=== PATIENT | male | born 1945 | race Caucasian/White ===

== ENCOUNTER 2016-11-10 17:55 | Emergency (ER) | payer MEDICARE, OTHER ==
[2016-11-10] MEDS ORDERED: Sodium Chloride 0.9% 10 ML Syringe FLUSH PRN (18:36)
--- NOTE | 2016-11-10 18:36 | EDM.PDOC ---
<Zeb Winchester - Last Filed: 11/10/16 18:46> ED HPI GENERAL MEDICAL PROBLEM - General Chief Complaint: Respiratory Problem Stated Complaint: SOB Time Seen by Provider: 11/10/16 18:10 Source of Information: Reports: Patient History Limitations: Reports: No Limitations - History of Present Illness INITIAL COMMENTS - FREE TEXT/NARRATIVE: The patient is a 71-year-old male with a history of atrial fibrillation, pacemaker, diabetes, hypertension, congestive heart failure, who comes in with increasing shortness of breath and lower extremity swelling. He states that he' s had a cough for about a month. He hasn't seen a provider for that. He comes in today because for the past few days become increasingly short of breath. He continues to have a productive cough. Has also had worsening lower extremity swelling. No known fever. He does feel generally poor. Has tried nebulizer treatments at home with no relief. He also took 40 mg of Lasix this morning instead of his usual 20 mg. No chest pain. No abdominal pain, vomiting, or urinary symptoms. Has been compliant with his medications. - Related Data Allergies Allergy/AdvReac Type Severity Reaction Status Date / Time adhesive Allergy unk Verified 11/10/16 18:06 codeine Allergy Rash Verified 11/10/16 18:06 lisinopril Allergy unk Verified 11/10/16 18:06 oxycodone Allergy unk Verified 11/10/16 18:06 vancomycin Allergy Itching Verified 11/10/16 18:06 Home Meds: Home Meds Carboxymethyl/Gly/Poly80/Pf [Refresh Optive Advanced Drops] 1 drop EYEBOTH BEDTIME 04/01/14 [History] Carvedilol [Coreg] 6.25 mg PO QAM 04/01/14 [History] Cinnamon Bark [Cinnamon] 1,000 mg PO DAILY 04/01/14 [History] Dutasteride [Avodart] 0.5 mg PO DAILY 04/01/14 [History] Furosemide [Lasix] 10 mg PO DAILY 04/01/14 [History] Ibuprofen [Advil] 400 mg PO DAILY PRN 04/01/14 [History] Multivitamin [Multivitamins] 1 tab PO DAILY 04/01/14 [History] Potassium Chloride [Klor-Con M20] 20 meq PO DAILY 12/22/14 [History] SitaGLIPtin [Januvia] 50 mg PO DAILY 04/01/14 [History] Warfarin [Coumadin] 5 mg PO ASDIRECTED 04/01/14 [History] guaiFENesin [Mucinex] 600 mg PO DAILY PRN 04/01/14 [History] metFORMIN [Glucophage] 1,000 mg PO BEDTIME 04/01/14 [History] B&C/FA/Zinc/Copper Oxide/Vit E [Stress B-Complex Tablet] 1 tab PO DAILY [History] Warfarin [Coumadin] 7.5 mg PO FR 07/24/14 [History] Albuterol [Proventil Neb Soln] 2.5 mg NEB Q4H PRN 09/06/14 [History] Aspirin 1 tab PO DAILY 04/28/16 [History] Carvedilol [Coreg] 12.5 mg PO BEDTIME 04/28/16 [History] Lactobacillus Combination No.4 [Probiotic] 1 tab PO DAILY 04/28/16 [History] Ascorbic Acid [Vitamin C] 1 tab PO DAILY 04/29/16 [History] Budesonide/Formoterol [Symbicort 160-4.5 MCG] 2 hr IH ASDIRECTED PRN 04/29/16 [ History] Cholecalciferol (Vitamin D3) [Vitamin D3] 1,000 units PO DAILY 04/29/16 [History ] Docusate Sodium 200 mg PO BEDTIME 04/29/16 [History] Escitalopram [Lexapro] 10 mg PO DAILY 04/29/16 [History] Ferrous Sulfate 325 mg PO BID 04/29/16 [History] Gabapentin [Neurontin] 200 mg PO BEDTIME 04/29/16 [History] Ibuprofen 400 mg PO ASDIRECTED PRN 04/29/16 [History] Loratadine [Claritin] 1 tab PO ASDIRECTED PRN 04/29/16 [History] Losartan [Cozaar] 25 mg PO BEDTIME 04/29/16 [History] Methylcellulose [Citrucel] 500 mg PO BID 04/29/16 [History] Olopatadine [Patanol 0.1% Ophth Soln] 1 drop EYEBOTH DAILY 04/29/16 [History] Simvastatin [Zocor] 20 mg PO BEDTIME 04/29/16 [History] Sodium Chloride [Saline Nasal [place]] 1 spray NEELIMA DAILY 04/29/16 [History] traMADol HCl [Ultram] 50 - 100 mg PO Q6H PRN #20 tablet 04/29/16 [Rx] Past Medical History HEENT History: Reports: Impaired Vision Cardiovascular History: Reports: Afib, Heart Failure, High Cholesterol, Hypertension, Pacemaker Other Cardiovascular History: leaky valve, hx of tachycardia and a fib Respiratory History: Reports: Asthma, Sleep Apnea Other Respiratory History: allergic asthma Gastrointestinal History: Reports: Colon Polyp, Diverticulosis, GERD Neurological History: Reports: TIA Endocrine/Metabolic History: Reports: Diabetes, Type II - Past Surgical History HEENT Surgical History: Reports: Cataract Surgery, Tonsillectomy GI Surgical History: Reports: Other (See Below) Musculoskeletal Surgical History: Reports: Carpal Tunnel, Other (See Below) Social & Family History - Family History Family Medical History: Noncontributory - Tobacco Use Smoking Status *Q: Never Smoker Years of Tobacco use: 20 Packs/Tins Daily: 1 Used Tobacco, but Quit: Yes Month Tobacco Last Used: 1995 Second Hand Smoke Exposure: No - Caffeine Use Caffeine Use: Reports: None - Alcohol Use Days Per Week of Alcohol Use: 0 Number of Drinks Per Day: 0 Total Drinks Per Week: 0 - Recreational Drug Use Recreational Drug Use: No Drug Use in Last 12 Months: No - Living Situation & Occupation Living situation: Reports: , with Spouse Occupation: Retired ED ROS GENERAL - Review of Systems Review Of Systems: See Below Constitutional: Reports: Weakness, Fatigue. Denies: Fever HEENT: Reports: No Symptoms Respiratory: Reports: Shortness of Breath, Wheezing, Cough Cardiovascular: Denies: Chest Pain Endocrine: Reports: Fatigue GI/Abdominal: Denies: Abdominal Pain : Reports: No Symptoms Musculoskeletal: Reports: No Symptoms Skin: Reports: No Symptoms Neurological: Reports: No Symptoms Psychiatric: Reports: No Symptoms Hematologic/Lymphatic: Reports: No Symptoms ED EXAM, GENERAL - Physical Exam Exam: See Below Exam Limited By: No Limitations General Appearance: Alert, WD/WN, No Apparent Distress Eye Exam: Bilateral Eye: PERRL Ears: Normal External Exam Nose: Normal Inspection, Normal Mucosa, No Blood Throat/Mouth: Normal Inspection, Normal Voice, No Airway Compromise Head: Atraumatic, Normocephalic Neck: Normal Inspection, Supple, Non-Tender, Full Range of Motion Respiratory/Chest: Other (Scattered wheezes, a few crackles at the base, no distress) Cardiovascular: Normal Peripheral Pulses, Regular Rate, Rhythm, Other (1+ bilateral lower extremity pitting edema affects the feet up to the knees) GI/Abdominal: Soft, Non-Tender, No Distention. No: Rebound Back Exam: Normal Inspection Extremities: Normal Range of Motion, Non-Tender, Other (1+ pitting edema bilaterally up to the knees) Neurological: Alert, Oriented, Normal Cognition, No Motor/Sensory Deficits Psychiatric: Normal Affect, Normal Mood Skin Exam: Warm, Dry, Intact, Normal Color, No Rash Course - Vital Signs Last Recorded V/S: Last Vital Signs Temp 36.2 C 11/10/16 18:04 Pulse 101 H 11/10/16 18:04 Resp 17 11/10/16 18:04 BP Pulse Ox 96 11/10/16 18:59 - Orders/Labs/Meds Orders: Active Orders 24 hr Category Date Time Status EKG 12 Lead [EKG Documentation Completion] [RC] STAT Care 11/10/16 18:09 Active Peripheral IV Care [RC] . DIRECTED Care 11/10/16 18:36 Active RT Aerosol Therapy [RC] ASDIRECTED Care 11/10/16 18:51 Active Chest 1V Frontal [CR] Stat Exams 11/10/16 18:36 Taken Sodium Chloride 0.9% [Saline Flush] Med 11/10/16 18:36 Active 10 ml FLUSH ASDIRECTED PRN Peripheral IV Insertion Adult [OM.PC] Routine Oth 11/10/16 18:36 Ordered Medication Orders Sodium Chloride (Saline Flush) 10 ml FLUSH ASDIRECTED PRN PRN Reason: Keep Vein Open Last Admin: 11/10/16 19:10 Dose: 10 ml Labs: Laboratory Tests 11/10/16 11/10/16 11/10/16 Range/Units 19:10 19:10 19:10 WBC 12.44 H (4.23-9.07) K/mm3 RBC 4.08 L (4.63-6.08) M/mm3 Hgb 13.3 L (13.7-17.5) gm/L Hct 38.5 L (40.1-51.0) % MCV 94.4 H (79.0-92.2) fl MCH 32.6 H (25.7-32.2) pg MCHC 34.5 (32.2-35.5) g/dl RDW Std Deviation 47.2 H (35.1-43.9) fL Plt Count 216 (163-337) K/mm3 MPV 9.2 L (9.4-12.3) fl Neut % (Auto) 65.5 (34.0-67.9) % Lymph % (Auto) 14.3 L (21.8-53.1) % [place] % (Auto) 8.9 (5.3-12.2) % Eos % (Auto) 10.4 H (0.8-7.0) Baso % (Auto) 0.7 (0.1-1.2) % Neut # (Auto) 8.14 H (1.78-5.38) K/mm3 Lymph # (Auto) 1.78 (1.32-3.57) K/mm3 [place] # (Auto) 1.11 H (0.30-0.82) K/mm3 Eos # (Auto) 1.29 H (0.04-0.54) K/mm3 Baso # (Auto) 0.09 H (0.01-0.08) K/mm3 Sodium 138 (136-145) mEq/L Potassium 4.9 (3.5-5.1) mEq/L Chloride 104 (98-107) mEq/L Carbon Dioxide 24 (21-32) mEq/L Anion Gap 14.9 (5-15) BUN 21 H (7-18) mg/dL Creatinine 1.3 (0.7-1.3) mg/dL Est Cr Clr Drug Dosing 56.38 mL/min Estimated GFR (MDRD) 54 (>60) mL/min BUN/Creatinine Ratio 16.2 (14-18) Glucose 136 H (83-115) mg/dL Calcium 8.8 (8.5-10.1) mg/dL Total Bilirubin 0.8 (0.2-1.0) mg/dL AST 20 (15-37) U/L ALT 23 (16-63) U/L Alkaline Phosphatase 58 (46-116) U/L Troponin I 0.018 (0.00-0.056) ng/mL B-Natriuretic Peptide 480 H (0-100) pg/mL Total Protein 7.6 (6.4-8.2) g/dl Albumin 3.6 (3.4-5.0) g/dl Globulin 4.0 gm/dL Albumin/Globulin Ratio 0.9 L (1-2) Urine Color (Yellow) Urine Appearance (Clear) Urine pH (5.0-8.0) Ur Specific Campus (1.005-1.030) Urine Protein (Negative) Urine Glucose (UA) (Negative) Urine Ketones (Negative) Urine Occult Blood (Negative) Urine Nitrite (Negative) Urine Bilirubin (Negative) Urine Urobilinogen (0.2-1.0) Ur Leukocyte Esterase (Negative) Urine RBC (0-5) /hpf Urine WBC (0-5) /hpf Ur Epithelial Cells (0-5) /hpf Urine Bacteria (FEW) /hpf Urine Mucus (FEW) /hpf 11/10/16 Range/Units 21:03 WBC (4.23-9.07) K/mm3 RBC (4.63-6.08) M/mm3 Hgb (13.7-17.5) gm/L Hct (40.1-51.0) % MCV (79.0-92.2) fl MCH (25.7-32.2) pg MCHC (32.2-35.5) g/dl RDW Std Deviation (35.1-43.9) fL Plt Count (163-337) K/mm3 MPV (9.4-12.3) fl Neut % (Auto) (34.0-67.9) % Lymph % (Auto) (21.8-53.1) % [place] % (Auto) (5.3-12.2) % Eos % (Auto) (0.8-7.0) Baso % (Auto) (0.1-1.2) % Neut # (Auto) (1.78-5.38) K/mm3 Lymph # (Auto) (1.32-3.57) K/mm3 [place] # (Auto) (0.30-0.82) K/mm3 Eos # (Auto) (0.04-0.54) K/mm3 Baso # (Auto) (0.01-0.08) K/mm3 Sodium (136-145) mEq/L Potassium (3.5-5.1) mEq/L Chloride (98-107) mEq/L Carbon Dioxide (21-32) mEq/L Anion Gap (5-15) BUN (7-18) mg/dL Creatinine (0.7-1.3) mg/dL Est Cr Clr Drug Dosing mL/min Estimated GFR (MDRD) (>60) mL/min BUN/Creatinine Ratio (14-18) Glucose (83-115) mg/dL Calcium (8.5-10.1) mg/dL Total Bilirubin (0.2-1.0) mg/dL AST (15-37) U/L ALT (16-63) U/L Alkaline Phosphatase (46-116) U/L Troponin I (0.00-0.056) ng/mL B-Natriuretic Peptide (0-100) pg/mL Total Protein (6.4-8.2) g/dl Albumin (3.4-5.0) g/dl Globulin gm/dL Albumin/Globulin Ratio (1-2) Urine Color Yellow (Yellow) Urine Appearance Clear (Clear) Urine pH 5.5 (5.0-8.0) Ur Specific Campus 1.020 (1.005-1.030) Urine Protein 1+ H (Negative) Urine Glucose (UA) Negative (Negative) Urine Ketones Negative (Negative) Urine Occult Blood Negative (Negative) Urine Nitrite Negative (Negative) Urine Bilirubin Negative (Negative) Urine Urobilinogen 0.2 (0.2-1.0) Ur Leukocyte Esterase Negative (Negative) Urine RBC Not seen (0-5) /hpf Urine WBC 0-5 (0-5) /hpf Ur Epithelial Cells 0-5 (0-5) /hpf Urine Bacteria Not seen (FEW) /hpf Urine Mucus Not seen (FEW) /hpf Meds: Medications Generic Name Dose Route Start Last Admin Trade Name Freq PRN Reason Stop Dose Admin Sodium Chloride 10 ml 11/10/16 18:36 11/10/16 19:10 Saline Flush FLUSH 10 ml ASDIRECTED PRN Administration Keep Vein Open Discontinued Medications Generic Name Dose Route Start Last Admin Trade Name Freq PRN Reason Stop Dose Admin Albuterol/Ipratropium 3 ml 11/10/16 18:51 11/10/16 18:59 Duoneb 3.0-0.5 Mg/3 Ml NEB 11/10/16 18:52 3 ml ONETIME ONE Administration Furosemide 40 mg 11/10/16 20:48 11/10/16 20:58 Lasix IVPUSH 11/10/16 20:49 40 mg NOW ONE Administration - Re-Assessments/Exams Free Text/Narrative Re-Assessment/Exam: 11/10/16 18:50 EKG shows wide complex paced rhythm similar to prior. Chest x-ray and labs pending. Signed out to Dr. Jensen pending labs, reeval. Departure - Departure Disposition: Home, Self-Care 01 Clinical Impression: CHF exacerbation - Discharge Information Forms: ED Department Discharge Additional Instructions: Return to the emergency room with any questions problems worsening symptoms. Follow-up with your regular physician early next week and your hostel manager as scheduled. Continue your routine medications however for tomorrow, , and Tuesday take 40 mg of Lasix daily instead of 20 mg of Lasix daily. <Stevie Jensen - Last Filed: 11/10/16 21:45> Course - Re-Assessments/Exams Free Text/Narrative Re-Assessment/Exam: 11/10/16 20:50 Patient is doing much better at this time after the breathing treatment he is not back to normal labs reviewed BNP is elevated troponin negative. Chest x-ray shows some pulmonary congestion pacemaker seen right diaphragm elevated compared to the left this is not new. At this point the patient will receive 40 mg of IV Lasix he had an additional 20 mg Lasix at home anticipate discharge if he can maintain reasonable to saturation. 11/10/16 21:42 Patient continues to improve he received 40 mg of IV Lasix he's had over 300 mL out and is voiding when I last checked him his saturations of state good he really wants to go home we will discharge at this time he will continue Lasix 40 mg a day for 2 more days then resume his normal Lasix dose at 20 mg a day and then follow up with his regular physician early next week Departure - Departure Time of Disposition: 21:43
[2016-11-10] MEDS ORDERED: Albuterol/Ipratropium 3.0-0.5 MG/3 ML Neb Soln NEB ONE (18:51)
[2016-11-10] MEDS ORDERED: Furosemide 40 MG/4 ML VIAL IVPUSH ONE (20:48)
--- NOTE | 2016-11-11 07:03 | CR ---
Chest: Portable view of the chest was obtained. Comparison: Previous chest x-ray of 09/07/14. Heart size is slightly prominent but accentuated from portable technique. Pacemaker is noted. Pulmonary vessels are slightly congested which appear to be chronic. Lungs otherwise are clear. Bony structures are grossly intact. Impression: 1. Pulmonary vessels are mildly congested which appear to be chronic. 2. Pacemaker. 3. Nothing acute is identified on portable chest x-ray. Diagnostic code #2
== END 2016-11-10 21:56 | disposition home or self-care (01) ==
LOC: JD.ED 17:55
DX: I11.0 Hypertensive heart disease with heart failure (principal); I50.9 Heart failure, unspecified; I48.91 Unspecified atrial fibrillation; E78.00 Pure hypercholesterolemia, unspecified; J45.909 Unspecified asthma, uncomplicated; G47.30 Sleep apnea, unspecified; K21.9 Gastro-esophageal reflux disease without esophagitis; E11.9 Type 2 diabetes mellitus without complications; Z86.73 Personal history of transient ischemic attack (TIA), and cerebral infarction without residual deficits; Z98.49 Cataract extraction status, unspecified eye; Z98.890 Other specified postprocedural states; Z79.82 Long term (current) use of aspirin; Z79.84 Long term (current) use of oral hypoglycemic drugs; Z79.899 Other long term (current) drug therapy; Z88.1 Allergy status to other antibiotic agents; Z88.6 Allergy status to analgesic agent; Z88.5 Allergy status to narcotic agent
CPT/HCPCS: 36415; 71010; 80053; 81001; 83880; 84484; 85025; 93005; 94664; 96374; 99285; J1940; J7050; 99284

== ENCOUNTER 2017-02-02 07:07 | Emergency (ER) | payer MEDICARE, OTHER ==
[2017-02-02 07:29] VITALS: BP 93/64
[2017-02-02] MEDS ORDERED: Sodium Chloride 0.9% 10 ML Syringe FLUSH PRN (07:37)
--- NOTE | 2017-02-02 07:44 | EDM.PDOC ---
ED HPI GENERAL MEDICAL PROBLEM - General Chief Complaint: Respiratory Problem Stated Complaint: SOB Time Seen by Provider: 02/02/17 07:19 Source of Information: Reports: Patient, Family History Limitations: Reports: No Limitations - History of Present Illness INITIAL COMMENTS - FREE TEXT/NARRATIVE: The patient presents with chest pain and shortness of breath. The patient had mitral and aortic valve replacement with CABG in December. He was in the hospital for weeks and in the retirement after that. He has had his chest open up and had that repaired in that time frame. He was released from [facility] on Tuesday. This morning he was up anxious and short of breath. He also has chest pain. He denies any fever but he did have chills. He has no nausea or vomiting. He has mild edema in both legs but no pain in his legs. His oxygen saturations were in the mid 70s at home and upper 80s here. Onset: Gradual Duration: Hour(s): Location: Reports: Chest Quality: Reports: Pressure Severity: Moderate Improves with: Reports: None Worsens with: Reports: None Context: Reports: Other (He woke up with this) Associated Symptoms: Reports: Chest Pain, Fever/Chills, Shortness of Breath. Denies: Cough, Headaches, Nausea/Vomiting Chest Pain Score (Numeric/FACES): 4 - Related Data Allergies Allergy/AdvReac Type Severity Reaction Status Date / Time adhesive Allergy unk Verified 02/02/17 07:20 codeine Allergy Rash Verified 02/02/17 07:20 lisinopril Allergy unk Verified 02/02/17 07:20 oxycodone Allergy unk Verified 02/02/17 07:20 vancomycin Allergy Itching Verified 02/02/17 07:20 Home Meds: Home Meds Potassium Chloride [Klor-Con M20] 40 meq PO DAILY 04/01/14 [History] SitaGLIPtin [Januvia] 50 mg PO DAILY 04/01/14 [History] metFORMIN [Glucophage] 1,000 mg PO BEDTIME 04/01/14 [History] Lactobacillus Combination No.4 [Probiotic] 1 tab PO DAILY 04/28/16 [History] Gabapentin [Neurontin] 200 mg PO BEDTIME 04/29/16 [History] Losartan [Cozaar] 12.5 mg PO DAILY 04/29/16 [History] Olopatadine [Patanol 0.1% Ophth Soln] 1 drop EYEBOTH DAILY 04/29/16 [History] Simvastatin [Zocor] 20 mg PO BEDTIME 04/29/16 [History] Escitalopram [Lexapro] 10 mg PO DAILY 02/02/17 [History] Fluticasone Propionate [Flonase Allergy Relief] 1 spray NEELIMA DAILY 02/02/17 [ History] Metoprolol Succinate [Toprol XL] 12.5 mg PO DAILY 02/02/17 [History] Ranitidine HCl [Zantac] 300 mg PO DAILY 02/02/17 [History] Spironolactone [Aldactone] 12.5 mg PO DAILY 02/02/17 [History] Torsemide 40 mg PO DAILY 02/02/17 [History] Vitamin B Complex & Vit C No.3 [B Complex with Vitamin C] 1 tab PO DAILY [History] Past Medical History HEENT History: Reports: Impaired Vision Other HEENT History: wears eyeglasses. Cardiovascular History: Reports: Afib, Heart Failure, High Cholesterol, Hypertension, Pacemaker Other Cardiovascular History: leaky valve, hx of tachycardia and a fib, 3 vessel CABG, 2 heart valves replaced. Respiratory History: Reports: Asthma, Sleep Apnea Other Respiratory History: allergic asthma, uses C-PAP. Gastrointestinal History: Reports: Colon Polyp, Diverticulosis, GERD Neurological History: Reports: TIA Psychiatric History: Reports: Anxiety Endocrine/Metabolic History: Reports: Diabetes, Type II Hematologic History: Reports: Anemia, Blood Transfusion(s) - Past Surgical History HEENT Surgical History: Reports: Cataract Surgery, Tonsillectomy Cardiovascular Surgical History: Reports: Coronary Artery Bypass, Valve Replacement GI Surgical History: Reports: Other (See Below) Musculoskeletal Surgical History: Reports: Carpal Tunnel, Other (See Below) Social & Family History - Family History Family Medical History: Noncontributory - Tobacco Use Smoking Status *Q: Never Smoker Years of Tobacco use: 20 Packs/Tins Daily: 1 Used Tobacco, but Quit: Yes Month Tobacco Last Used: 1995 Second Hand Smoke Exposure: No - Caffeine Use Caffeine Use: Reports: None - Alcohol Use Days Per Week of Alcohol Use: 0 Number of Drinks Per Day: 0 Total Drinks Per Week: 0 - Recreational Drug Use Recreational Drug Use: No Drug Use in Last 12 Months: No - Living Situation & Occupation Living situation: Reports: , with Spouse Occupation: Retired ED ROS GENERAL - Review of Systems Review Of Systems: See Below Constitutional: Reports: Chills. Denies: Fever HEENT: Reports: No Symptoms Respiratory: Reports: Shortness of Breath. Denies: Cough Cardiovascular: Reports: Chest Pain Endocrine: Reports: No Symptoms GI/Abdominal: Reports: No Symptoms : Reports: No Symptoms Musculoskeletal: Reports: No Symptoms ED EXAM, GENERAL - Physical Exam Exam: See Below Exam Limited By: No Limitations General Appearance: Alert, No Apparent Distress Ears: Normal External Exam Nose: Normal Inspection Head: Atraumatic, Normocephalic Neck: Normal Inspection Respiratory/Chest: No Respiratory Distress, Lungs Clear, Normal Breath Sounds Cardiovascular: Regular Rate, Rhythm, No Edema, No Murmur GI/Abdominal: Soft, Non-Tender, No Organomegaly, No Mass Back Exam: Normal Inspection Extremities: Pedal Edema (Mild) Neurological: Alert, Oriented, No Motor/Sensory Deficits Skin Exam: Other (Multiple scars to the chest and abdomen with no erythema, edema, pain or drainage) EKG INTERPRETATION EKG Date: 02/02/17 Time: 07:46 Rhythm: Other (Ventricular paced rhythm) Rate (Beats/Min): 77 Course - Vital Signs Last Recorded V/S: Last Vital Signs Temp 97.4 F 02/02/17 07:10 Pulse 90 02/02/17 07:10 Resp 20 02/02/17 07:10 BP 93/64 02/02/17 07:10 Pulse Ox 95 02/02/17 07:10 - Orders/Labs/Meds Orders: Active Orders 24 hr Category Date Time Status Cardiac Monitoring [RC] . DIRECTED Care 02/02/17 07:37 Active EKG Documentation Completion [RC] STAT Care 02/02/17 07:38 Active Oxygen Therapy [RC] PRN Care 02/02/17 07:37 Active Peripheral IV Care [RC] . DIRECTED Care 02/02/17 07:38 Active Sodium Chloride 0.9% [Saline Flush] Med 02/02/17 07:37 Active 10 ml FLUSH ASDIRECTED PRN Peripheral IV Insertion Adult [OM.PC] Stat Oth 02/02/17 07:37 Ordered Medication Orders Sodium Chloride (Saline Flush) 10 ml FLUSH ASDIRECTED PRN PRN Reason: Keep Vein Open Last Admin: 02/02/17 08:01 Dose: 10 ml Labs: Laboratory Tests 02/02/17 02/02/17 Range/Units 07:25 07:25 WBC 11.51 H (4.23-9.07) K/mm3 RBC 3.89 L (4.63-6.08) M/mm3 Hgb 11.7 L (13.7-17.5) gm/L Hct 35.6 L (40.1-51.0) % MCV 91.5 (79.0-92.2) fl MCH 30.1 (25.7-32.2) pg MCHC 32.9 (32.2-35.5) g/dl RDW Std Deviation 52.4 H (35.1-43.9) fL Plt Count 296 (163-337) K/mm3 MPV 8.8 L (9.4-12.3) fl Neut % (Auto) 64.1 (34.0-67.9) % Lymph % (Auto) 25.3 (21.8-53.1) % [place] % (Auto) 7.6 (5.3-12.2) % Eos % (Auto) 2.1 (0.8-7.0) Baso % (Auto) 0.6 (0.1-1.2) % Neut # (Auto) 7.38 H (1.78-5.38) K/mm3 Lymph # (Auto) 2.91 (1.32-3.57) K/mm3 [place] # (Auto) 0.88 H (0.30-0.82) K/mm3 Eos # (Auto) 0.24 (0.04-0.54) K/mm3 Baso # (Auto) 0.07 (0.01-0.08) K/mm3 Sodium 136 (136-145) mEq/L Potassium 4.3 (3.5-5.1) mEq/L Chloride 99 (98-107) mEq/L Carbon Dioxide 25 (21-32) mEq/L Anion Gap 16.3 H (5-15) BUN 28 H (7-18) mg/dL Creatinine 1.6 H (0.7-1.3) mg/dL Est Cr Clr Drug Dosing 45.81 mL/min Estimated GFR (MDRD) 43 (>60) mL/min BUN/Creatinine Ratio 17.5 (14-18) Glucose 160 H (83-115) mg/dL Calcium 8.9 (8.5-10.1) mg/dL Total Bilirubin 0.6 (0.2-1.0) mg/dL AST 25 (15-37) U/L ALT 18 (16-63) U/L Alkaline Phosphatase 108 (46-116) U/L Troponin I < 0.017 (0.00-0.056) ng/mL NT-Pro-B Natriuret Pep 3123 H (0-125) pg/mL Total Protein 8.1 (6.4-8.2) g/dl Albumin 2.8 L (3.4-5.0) g/dl Globulin 5.3 gm/dL Albumin/Globulin Ratio 0.5 L (1-2) Meds: Medications Generic Name Dose Route Start Last Admin Trade Name Freq PRN Reason Stop Dose Admin Sodium Chloride 10 ml 02/02/17 07:37 02/02/17 08:01 Saline Flush FLUSH 10 ml ASDIRECTED PRN Administration Keep Vein Open - Re-Assessments/Exams Free Text/Narrative Re-Assessment/Exam: 02/02/17 07:44 I ordered oxygen, labs, EKG, and CXR. 02/02/17 08:53 His EKG shows a paced rhythm. His CXR shows increased lung markings most of which appear chronic. Findings are slightly increased on the left side possibly due to atelectasis versus superimposed bronchitis. Mild atelectasis within the right lung base. Possible small pleural effusions. His WBC was a little elevated at 11.51. His Hgb was a little low at 11.7. His anion gap is elevated at 16.3. His creatinine was elevated at 1.6. His glucose was elevated at 160. His troponin is negative. His BNP was elevated at 3123. His CXR shows the heart failure and he may have bronchitis. I will give him lasix 40mg IV. He had chills and possible bronchitis on his CXR. I will get blood cultures and give him some levaquin 750mg IV. I feel he needs to be admitted. He is a more complex patient then what we can handle here. I called [facility] and talked with Dr Beckford the hospitalist mental retardation nurse and she accepted the patient. 02/02/17 09:14 Departure - Departure Time of Disposition: 09:15 Disposition: DC/Tfer to Acute Hospital 02 Condition: Fair Clinical Impression: Bronchitis Chest pain Qualifiers: Chest pain type: unspecified Qualified Code(s): R07.9 - Chest pain, unspecified CHF exacerbation Qualifiers: Congestive heart failure type: unspecified congestive heart failure type Qualified Code(s): I50.9 - Heart failure, unspecified - Discharge Information Referrals: Richard Ford MD [Primary Care Provider] - Forms: ED Department Discharge - My Orders Last 24 Hours: My Active Orders 02/02/17 07:37 Cardiac Monitoring [RC] . DIRECTED Oxygen Therapy [RC] PRN Sodium Chloride 0.9% [Saline Flush] 10 ml FLUSH ASDIRECTED PRN Peripheral IV Insertion Adult [OM.PC] Stat 02/02/17 07:38 EKG Documentation Completion [RC] STAT Peripheral IV Care [RC] . DIRECTED - Assessment/Plan Last 24 Hours: My Active Orders 02/02/17 07:37 Cardiac Monitoring [RC] . DIRECTED Oxygen Therapy [RC] PRN Sodium Chloride 0.9% [Saline Flush] 10 ml FLUSH ASDIRECTED PRN Peripheral IV Insertion Adult [OM.PC] Stat 02/02/17 07:38 EKG Documentation Completion [RC] STAT Peripheral IV Care [RC] . DIRECTED
--- NOTE | 2017-02-02 08:40 | CR ---
Chest: Portable view of the chest was obtained. Comparison: Prior chest x-ray of 11/10/16 is available. Heart size at the upper limits of normal. Central lung markings are increased which appear more prominent on the left side from prior exam possibly due to atelectasis or bronchitis. Slight increased density within the right lung base is seen which is felt compatible with atelectasis. Possible small pleural effusions are present. Pacemaker is noted. Sternotomy wires are present. Bony structures are grossly intact. Impression: 1. Increased lung markings most of which appear chronic. Findings are slightly increased on the left side possibly due to atelectasis versus superimposed bronchitis. 2. Mild atelectasis within the right lung base. 3. Possible small pleural effusions. 4. Other findings which are stable. Diagnostic code #3
[2017-02-02] MEDS ORDERED: Furosemide 40 MG/4 ML VIAL IVPUSH ONE (08:50)
[2017-02-02] MEDS ORDERED: Levofloxacin/Dextrose 5%-Water 750 MG in Premix Bag 1 BAG IV ONE (09:05)
== END 2017-02-02 10:20 ==
LOC: JD.ED 07:07
DX: J40 Bronchitis, not specified as acute or chronic (principal); I11.0 Hypertensive heart disease with heart failure; I50.9 Heart failure, unspecified; E11.22 Type 2 diabetes mellitus with diabetic chronic kidney disease; E78.00 Pure hypercholesterolemia, unspecified; I48.91 Unspecified atrial fibrillation; K21.9 Gastro-esophageal reflux disease without esophagitis; Z88.8 Allergy status to other drugs, medicaments and biological substances; Z88.5 Allergy status to narcotic agent; Z88.1 Allergy status to other antibiotic agents; Z79.899 Other long term (current) drug therapy; Z95.0 Presence of cardiac pacemaker; Z79.84 Long term (current) use of oral hypoglycemic drugs; Z86.73 Personal history of transient ischemic attack (TIA), and cerebral infarction without residual deficits; Z95.5 Presence of coronary angioplasty implant and graft
CPT/HCPCS: 36415; 71010; 80053; 83880; 84484; 85025; 87040; 93005; 96365; 96375; 99285; J1940; J1956; J7050; 93010

== ENCOUNTER 2017-08-05 10:08 | Emergency (ER) | payer MEDICARE, OTHER ==
[2017-08-05] MEDS ORDERED: Sodium Chloride 0.9% 10 ML Syringe FLUSH PRN (10:21)
[2017-08-05] MEDS ORDERED: Ondansetron 4 MG/2 ML SDV IVPUSH ONE ×2 (10:22→10:54)
--- NOTE | 2017-08-05 10:34 | EDM.PDOC ---
ED HPI GENERAL MEDICAL PROBLEM - General Chief Complaint: Neuro Symptoms/Deficits Stated Complaint: [facility] Time Seen by Provider: 08/05/17 10:21 Source of Information: Reports: Patient, EMS, Family History Limitations: Reports: No Limitations - History of Present Illness INITIAL COMMENTS - FREE TEXT/NARRATIVE: The patient presents with stroke like symptoms. The patient got up this morning and was going to eat breakfast. He was sitting at the table and he told his he feels dizzy and then he passed out for a short time and she called 911. The last time known well was 9:45 am. When EMS arrived, the patient was confused and moaning. He was weak on the left side. He vomited once. He was becoming more alert an the way in. His blood sugar was 156. He has no headache, chest pain, shortness of breath or abdominal pain. He does have nausea and vomiting. He has no fever or chills. He had CABG, aortic valve repair, and mitral valve repair. He is on coumadin. He has also had some trouble with his kidney function lately. Onset: Sudden Duration: Minutes: (6245) Severity: Moderate Improves with: Reports: None Worsens with: Reports: None Associated Symptoms: Reports: Nausea/Vomiting. Denies: Chest Pain, Cough, Fever /Chills, Headaches, Shortness of Breath - Related Data Allergies Allergy/AdvReac Type Severity Reaction Status Date / Time adhesive Allergy unk Verified 05/13/17 13:05 codeine Allergy Rash Verified 05/13/17 13:05 lisinopril Allergy unk Verified 05/13/17 13:05 oxycodone Allergy unk Verified 05/13/17 13:05 vancomycin Allergy Itching Verified 05/13/17 13:05 Home Meds: Home Meds SitaGLIPtin [Januvia] 50 mg PO DAILY 04/01/14 [History] metFORMIN [Glucophage] 1,000 mg PO BEDTIME 04/01/14 [History] Lactobacillus Combination No.4 [Probiotic] 1 tab PO DAILY 04/28/16 [History] Gabapentin [Neurontin] 200 mg PO BEDTIME 04/29/16 [History] Losartan [Cozaar] 12.5 mg PO DAILY 04/29/16 [History] Olopatadine [Patanol 0.1% Ophth Soln] 1 drop EYEBOTH DAILY 04/29/16 [History] Simvastatin [Zocor] 20 mg PO BEDTIME 04/29/16 [History] Escitalopram [Lexapro] 10 mg PO DAILY 02/02/17 [History] Fluticasone Propionate [Flonase Allergy Relief] 1 spray NEELIMA DAILY 02/02/17 [ History] Metoprolol Succinate [Toprol XL] 50 mg PO DAILY 02/02/17 [History] Ranitidine HCl [Zantac] 300 mg PO DAILY 02/02/17 [History] Spironolactone [Aldactone] 12.5 mg PO DAILY 02/02/17 [History] Vitamin B Complex & Vit C No.3 [B Complex with Vitamin C] 1 tab PO DAILY [History] Albuterol [Proventil HFA] 2 puff INH Q6H PRN 02/11/17 [History] Albuterol [Proventil Neb Soln] 2.5 mg NEB QID PRN 02/11/17 [History] Ascorbate Calcium [Vitamin C] 500 mg PO DAILY 02/11/17 [History] Aspirin [[place]ster Aspirin] 81 mg PO DAILY 02/11/17 [History] Budesonide/Formoterol Fumarate [Symbicort 160-4.5 Mcg Inhaler] 2 puff IH BID 06/25 [History] Cholecalciferol (Vitamin D3) [Vitamin D3] 1,000 unit PO DAILY 02/11/17 [History] Cinnamon Bark [Cinnamon] 500 mg PO DAILY 02/11/17 [History] Docusate Sodium [Colace] 100 mg PO DAILY 02/11/17 [History] Dutasteride [Avodart] 0.5 mg PO DAILY 02/11/17 [History] Ferrous Sulfate 325 mg PO DAILY 02/11/17 [History] Insulin Degludec [Tresiba Flextouch U-100] 26 unit SQ DAILY 02/11/17 [History] Loratadine [Claritin] 10 mg PO DAILY 02/11/17 [History] Multivitamin [Multivitamins] 1 each PO DAILY 02/11/17 [History] Torsemide 10 mg PO DAILY 02/11/17 [History] Torsemide 20 mg PO DAILY 02/11/17 [History] Warfarin [Coumadin] 5 mg PO ASDIRECTED 02/11/17 [History] Warfarin [Coumadin] 7.5 mg PO ASDIRECTED 02/11/17 [History] Past Medical History HEENT History: Reports: Impaired Vision Other HEENT History: wears eyeglasses. Cardiovascular History: Reports: Afib, Heart Failure, High Cholesterol, Hypertension, Pacemaker Other Cardiovascular History: leaky valve, hx of tachycardia and a fib, 3 vessel CABG, 2 heart valves replaced. Respiratory History: Reports: Asthma, Sleep Apnea Other Respiratory History: allergic asthma, uses C-PAP. Gastrointestinal History: Reports: Colon Polyp, Diverticulosis, GERD Neurological History: Reports: TIA Psychiatric History: Reports: Anxiety Endocrine/Metabolic History: Reports: Diabetes, Type II Hematologic History: Reports: Anemia, Blood Transfusion(s) - Past Surgical History HEENT Surgical History: Reports: Cataract Surgery, Tonsillectomy Cardiovascular Surgical History: Reports: Coronary Artery Bypass, Valve Replacement GI Surgical History: Reports: Other (See Below) Musculoskeletal Surgical History: Reports: Carpal Tunnel, Other (See Below) Social & Family History - Family History Family Medical History: Noncontributory - Tobacco Use Smoking Status *Q: Never Smoker Years of Tobacco use: 20 Packs/Tins Daily: 1 Used Tobacco, but Quit: Yes Month/Year Tobacco Last Used: 1995 Second Hand Smoke Exposure: No - Caffeine Use Caffeine Use: Reports: None - Alcohol Use Days Per Week of Alcohol Use: 0 Number of Drinks Per Day: 0 Total Drinks Per Week: 0 - Recreational Drug Use Recreational Drug Use: No Drug Use in Last 12 Months: No - Living Situation & Occupation Living situation: Reports: , with Spouse Occupation: Retired ED ROS GENERAL - Review of Systems Review Of Systems: See Below Constitutional: Reports: No Symptoms HEENT: Reports: No Symptoms Respiratory: Reports: No Symptoms Cardiovascular: Reports: No Symptoms Endocrine: Reports: No Symptoms GI/Abdominal: Reports: Nausea, Vomiting. Denies: Abdominal Pain : Reports: No Symptoms Musculoskeletal: Reports: No Symptoms Skin: Reports: No Symptoms ED EXAM, NEURO - Physical Exam Exam: See Below Exam Limited By: No Limitations General Appearance: Alert, No Apparent Distress Ears: Normal External Exam Nose: Normal Inspection Head Exam: Atraumatic, Normocephalic Neck: Normal Inspection Respiratory/Chest: No Respiratory Distress, Lungs Clear, Normal Breath Sounds Cardiovascular: Regular Rate, Rhythm, No Edema, No Murmur GI/Abdominal: Soft, Non-Tender, No Organomegaly, No Mass Neurological: Alert, Oriented x 3, Other (Mild facial weakness, Mild arm weakness with drift and right leg weakness with drift) Extremities: Normal Inspection EKG INTERPRETATION EKG Date: 08/05/17 Time: 10:42 Rhythm: Other (Ventricular paced rhythm) Rate (Beats/Min): 70 Course - Orders/Labs/Meds Orders: Active Orders 24 hr Category Date Time Status Cardiac Monitoring [RC] . DIRECTED Care 08/05/17 10:21 Active EKG Documentation Completion [RC] STAT Care 08/05/17 10:22 Active Oxygen Therapy [RC] PRN Care 08/05/17 10:21 Active Peripheral IV Care [RC] . DIRECTED Care 08/05/17 10:22 Active Sodium Chloride 0.9% [Normal Saline] 500 ml Med 08/05/17 11:03 Active IV .BOLUS Sodium Chloride 0.9% [Saline Flush] Med 08/05/17 10:21 Active 10 ml FLUSH ASDIRECTED PRN Peripheral IV Insertion Adult [OM.PC] Stat Oth 08/05/17 10:21 Ordered Medication Orders Sodium Chloride (Normal Saline) 500 mls @ 1,000 mls/hr IV .BOLUS ONE Stop: 08/05/17 11:32 Last Admin: 08/05/17 11:05 Dose: 1,000 mls/hr Sodium Chloride (Saline Flush) 10 ml FLUSH ASDIRECTED PRN PRN Reason: Keep Vein Open Last Admin: 08/05/17 10:36 Dose: 10 ml Labs: Laboratory Tests 08/05/17 08/05/17 08/05/17 Range/Units 10:20 10:20 10:20 WBC 12.07 H (4.23-9.07) K/mm3 RBC 4.98 (4.63-6.08) M/mm3 Hgb 15.8 (13.7-17.5) gm/L Hct 45.0 (40.1-51.0) % MCV 90.4 (79.0-92.2) fl MCH 31.7 (25.7-32.2) pg MCHC 35.1 (32.2-35.5) g/dl RDW Std Deviation 48.1 H (35.1-43.9) fL Plt Count 214 (163-337) K/mm3 MPV 8.8 L (9.4-12.3) fl Neut % (Auto) 37.2 (34.0-67.9) % Lymph % (Auto) 47.6 (21.8-53.1) % [place] % (Auto) 11.2 (5.3-12.2) % Eos % (Auto) 3.2 (0.8-7.0) Baso % (Auto) 0.6 (0.1-1.2) % Neut # (Auto) 4.50 (1.78-5.38) K/mm3 Lymph # (Auto) 5.74 H (1.32-3.57) K/mm3 [place] # (Auto) 1.35 H (0.30-0.82) K/mm3 Eos # (Auto) 0.39 (0.04-0.54) K/mm3 Baso # (Auto) 0.07 (0.01-0.08) K/mm3 Manual Slide Review Normal smear PT 37.3 H (9.5-12.1) SECONDS INR 3.51 APTT 45 H (24-31) SECONDS Sodium 136 (136-145) mEq/L Potassium 4.1 (3.5-5.1) mEq/L Chloride 102 (98-107) mEq/L Carbon Dioxide 22 (21-32) mEq/L Anion Gap 16.1 H (5-15) BUN 29 H (7-18) mg/dL Creatinine 1.7 H (0.7-1.3) mg/dL Est Cr Clr Drug Dosing TNP Estimated GFR (MDRD) 40 (>60) mL/min BUN/Creatinine Ratio 17.1 (14-18) Glucose 216 H (83-115) mg/dL Calcium 8.7 (8.5-10.1) mg/dL Total Bilirubin 0.6 (0.2-1.0) mg/dL AST 38 H (15-37) U/L ALT 35 (16-63) U/L Alkaline Phosphatase 66 (46-116) U/L Troponin I < 0.017 (0.00-0.056) ng/mL Total Protein 7.8 (6.4-8.2) g/dl Albumin 3.7 (3.4-5.0) g/dl Globulin 4.1 gm/dL Albumin/Globulin Ratio 0.9 L (1-2) Meds: Medications Generic Name Dose Route Start Last Admin Trade Name Jorge PRN Reason Stop Dose Admin Sodium Chloride 500 mls @ 1,000 mls/hr 08/05/17 11:03 08/05/17 11:05 Normal Saline IV 08/05/17 11:32 1,000 mls/hr .BOLUS ONE Administration Sodium Chloride 10 ml 08/05/17 10:21 08/05/17 10:36 Saline Flush FLUSH 10 ml ASDIRECTED PRN Administration Keep Vein Open Discontinued Medications Generic Name Dose Route Start Last Admin Trade Name Jorge PRN Reason Stop Dose Admin Ondansetron HCl 4 mg 08/05/17 10:22 08/05/17 10:36 Zofran IVPUSH 08/05/17 10:23 4 mg ONETIME ONE Administration Ondansetron HCl 4 mg 08/05/17 10:54 08/05/17 10:57 Zofran IVPUSH 08/05/17 10:55 4 mg ONETIME ONE Administration - Re-Assessments/Exams Free Text/Narrative Re-Assessment/Exam: 08/05/17 11:17 A stroke alert was called. The patient's last time known well was 9:45 [place] time. He had right facial weakness, right arm and leg weakness with drift. His INR was 3.51. His NIH stroke score was 6. I called [facility] in [place] and talked with Dr Bustamante the neurologist director of distribution and we both agreed he is not a candidate for TPA because of the INR. He has improved to an NIH of 3. He did want the patient transferred down right away. His blood pressure was 90 systolic so he wanted a 500mL bolus then a rate of 125ml/hr. His CT showed senescent change. Probable small and incidental colloid cyst. His WBC was elevated at 12.07. His INR was elevated at 3.51. His creatinine was elevated at 1.7. His troponin was negative. Departure - Departure Time of Disposition: 11:25 Disposition: DC/Tfer to Acute Hospital 02 Condition: Poor Clinical Impression: Renal insufficiency CVA (cerebral vascular accident) Qualifiers: CVA mechanism: unspecified Qualified Code(s): I63.9 - Cerebral infarction, unspecified - Discharge Information Referrals: Richard Ford MD [Primary Care Provider] - Forms: ED Department Discharge - My Orders Last 24 Hours: My Active Orders 08/05/17 10:21 Cardiac Monitoring [RC] . DIRECTED Oxygen Therapy [RC] PRN Sodium Chloride 0.9% [Saline Flush] 10 ml FLUSH ASDIRECTED PRN Peripheral IV Insertion Adult [OM.PC] Stat 08/05/17 10:22 EKG Documentation Completion [RC] STAT Peripheral IV Care [RC] . DIRECTED 08/05/17 11:03 Sodium Chloride 0.9% [Normal Saline] 500 ml IV .BOLUS - Assessment/Plan Last 24 Hours: My Active Orders 08/05/17 10:21 Cardiac Monitoring [RC] . DIRECTED Oxygen Therapy [RC] PRN Sodium Chloride 0.9% [Saline Flush] 10 ml FLUSH ASDIRECTED PRN Peripheral IV Insertion Adult [OM.PC] Stat 08/05/17 10:22 EKG Documentation Completion [RC] STAT Peripheral IV Care [RC] . DIRECTED 08/05/17 11:03 Sodium Chloride 0.9% [Normal Saline] 500 ml IV .BOLUS
--- NOTE | 2017-08-05 10:35 | CT ---
Head CT Technique: Multiple axial sections through the brain were obtained. Intravenous contrast was not utilized. Comparison: No prior intracranial imaging. Findings: Ventricles along with basal cisterns and sulci over convexities are mildly prominent. Small old infarct is seen within the white matter within the left posterior parietal region. Diminished density is noted within the periventricular and subcortical white matter compatible with small vessel ischemic demyelination change. Minimal basal ganglia calcification is seen. Minimal area of increased density is noted next to the foramen of [place] measuring 4.6 mm most likely representing a very small colloid cyst. No evidence of intracranial hemorrhage. No midline shift or mass effect is seen. Bone window settings were reviewed which shows no acute calvarial abnormality. Visualized sinuses are clear. Impression: 1. Senescent change as noted above. 2. Probable small and incidental colloid cyst. 3. Nothing acute is appreciated on noncontrast head CT exam. Diagnostic code #2
[2017-08-05] MEDS ORDERED: Sodium Chloride 0.9% 500 ML IV ONE (11:03)
[2017-08-05 12:10] VITALS: BP 131/100
== END 2017-08-05 11:35 ==
LOC: JD.ED 10:08
DX: I63.9 Cerebral infarction, unspecified (principal); N28.9 Disorder of kidney and ureter, unspecified; I11.0 Hypertensive heart disease with heart failure; I50.9 Heart failure, unspecified; E11.9 Type 2 diabetes mellitus without complications; Z88.5 Allergy status to narcotic agent; Z88.8 Allergy status to other drugs, medicaments and biological substances; Z88.1 Allergy status to other antibiotic agents; Z79.899 Other long term (current) drug therapy; Z79.4 Long term (current) use of insulin; Z87.891 Personal history of nicotine dependence
CPT/HCPCS: 36415; 70450; 80053; 82962; 84484; 85025; 85610; 85730; 93005; 96374; 99285; J2405; J7040; J7050

== ENCOUNTER 2021-11-08 03:07 | Emergency (ER) | payer MEDICARE, OTHER ==
[2021-11-08 03:27] VITALS: BP 156/100; PULSE 71
[2021-11-08] MEDS ORDERED: Methocarbamol 500 MG Tab PO ONE (03:47)
[2021-11-08] MEDS ORDERED: Acetaminophen 325 MG Tab PO ONE (03:47)
== END 2021-11-08 05:00 | disposition home or self-care (01) ==
LOC: JD.ED 03:07
DX: M54.16 Radiculopathy, lumbar region (principal); I11.0 Hypertensive heart disease with heart failure; I50.9 Heart failure, unspecified; E11.9 Type 2 diabetes mellitus without complications; Z88.5 Allergy status to narcotic agent; Z88.8 Allergy status to other drugs, medicaments and biological substances; Z91.040 Latex allergy status; Z88.1 Allergy status to other antibiotic agents; Z79.899 Other long term (current) drug therapy; Z79.4 Long term (current) use of insulin; Z79.01 Long term (current) use of anticoagulants
CPT/HCPCS: 73502; 99283; A9270

== ENCOUNTER 2021-11-15 05:16 | Emergency (ER) | payer MEDICARE, OTHER ==
[2021-11-15 05:31] VITALS: BP 139/95; PULSE 90
[2021-11-15] MEDS ORDERED: oxyCODONE ER 10 MG TAB.ER PO ONE (05:52)
== END 2021-11-15 06:13 | disposition home or self-care (01) ==
LOC: JD.ED 05:16
DX: M54.16 Radiculopathy, lumbar region (principal); I48.91 Unspecified atrial fibrillation; I11.0 Hypertensive heart disease with heart failure; I50.9 Heart failure, unspecified; E11.9 Type 2 diabetes mellitus without complications; Z86.73 Personal history of transient ischemic attack (TIA), and cerebral infarction without residual deficits; Z95.0 Presence of cardiac pacemaker; Z95.1 Presence of aortocoronary bypass graft; Z88.5 Allergy status to narcotic agent; Z88.1 Allergy status to other antibiotic agents; Z91.040 Latex allergy status; Z88.8 Allergy status to other drugs, medicaments and biological substances; Z79.4 Long term (current) use of insulin; Z79.01 Long term (current) use of anticoagulants; Z79.82 Long term (current) use of aspirin
CPT/HCPCS: 99283; A9270